=== PATIENT | male | born 1990 | race Caucasian/White ===

== ENCOUNTER 2017-01-23 11:18 | Emergency (ER) | payer SELFPAY ==
[~2017-01-23] VITALS: Ht 195.6 cm; Wt 163.7 kg
[2017-01-23 11:22] VITALS: BP 153/87; PULSE 92; RESP 16; TEMP 98.5; O2SAT 98
--- NOTE | 2017-01-23 12:10 | PD ---
HPI Chief Complaint: GI Complaint Time Seen by Provider: 11:36 Travel History International Travel<30 days: No Contact w/Intl Traveler<30days: [place] Traveled to: [place] Traveled to known affect area: No History of Present Illness HPI 26yo M with no significant PMH presents to the ED with c/o rectal bleeding for 2 days. Said that when he wiped, he saw bright red blood intermittently for 2 days. States he has been having intermittent mild abdominal pain for months. Said it is usually periumbilical and goes away by itself. Denies any fever, chest pain, sob, n/v, diarrhea, testicular pain, penile discharge, diarrhea, focal weakness or numbness. PFSH Past Medical History Hx Anticoagulant Therapy: No Diabetes: No Tetanus Vaccination: < 5 Years Influenza Vaccination: No Social History Alcohol Use: Yes (occ) Tobacco Use: No Substance Use: No Allergies-Medications (Allergen,Severity, Reaction): Uncoded Allergies: PCN (Allergy, Severe, 01/23/17) Reported Meds & Prescriptions Reported Meds & Active Scripts Active No Active Prescriptions or Reported Medications Review of Systems Except as stated in HPI: all other systems reviewed are Neg Physical Exam Narrative GENERAL: 26yo M not in distress. SKIN: Focused skin assessment warm/dry. HEAD: Atraumatic. Normocephalic. EYES: Pupils equal and round. No scleral icterus. No injection or drainage. ENT: No nasal bleeding or discharge. Mucous membranes pink and moist. NECK: Trachea midline. No JVD. CARDIOVASCULAR: Regular rate and rhythm. No murmur appreciated. RESPIRATORY: No accessory muscle use. Clear to auscultation. Breath sounds equal bilaterally. GASTROINTESTINAL: Abdomen soft, non-tender, nondistended. No rebound tenderness or guarding. RECTAL: no external hemorrhoids seen, no internal hemorrhoids palpated. Hemaprompt negative. MUSCULOSKELETAL: No obvious deformities. No clubbing. No cyanosis. No edema. NEUROLOGICAL: Awake and alert. No obvious cranial nerve deficits. Motor grossly within normal limits. Normal speech. PSYCHIATRIC: Appropriate mood and affect; insight and judgment normal. Data Data Last Documented VS Vital Signs Date Time Temp Pulse Resp B/P (MAP) Pulse Ox O2 Delivery O2 Flow Rate FiO2 01/23/17 11:22 98.5 92 16 153/87 (109) 98 Orders Orders Complete Blood Count With Diff (01/23/17 11:49) Basic Metabolic Panel (Bmp) (01/23/17 11:49) Labs Laboratory Tests Test 01/23/17 12:00 White Blood Count 7.3 TH/MM3 Red Blood Count 5.32 MIL/MM3 Hemoglobin 15.2 GM/DL Hematocrit 44.9 % Mean Corpuscular Volume 84.5 FL Mean Corpuscular Hemoglobin 28.5 PG Mean Corpuscular Hemoglobin Concent 33.7 % Red Cell Distribution Width 12.4 % Platelet Count 231 TH/MM3 Mean Platelet Volume 9.4 FL Neutrophils (%) (Auto) 63.4 % Lymphocytes (%) (Auto) 28.7 % Monocytes (%) (Auto) 6.5 % Eosinophils (%) (Auto) 1.0 % Basophils (%) (Auto) 0.4 % Neutrophils # (Auto) 4.6 TH/MM3 Lymphocytes # (Auto) 2.1 TH/MM3 Monocytes # (Auto) 0.5 TH/MM3 Eosinophils # (Auto) 0.1 TH/MM3 Basophils # (Auto) 0.0 TH/MM3 CBC Comment DIFF FINAL Differential Comment Blood Urea Nitrogen 13 MG/DL Creatinine 0.82 MG/DL Random Glucose 134 MG/DL Calcium Level 8.9 MG/DL Sodium Level 139 MEQ/L Potassium Level 4.0 MEQ/L Chloride Level 104 MEQ/L Carbon Dioxide Level 25.4 MEQ/L Anion Gap 10 MEQ/L Estimat Glomerular Filtration Rate 113 ML/MIN [facility] Medical Decision Making Medical Screen Exam Complete: Yes Emergency Medical Condition: Yes Differential Diagnosis Inflammatory bowel syndrome vs. irritable bowel syndrome vs. hemorrhoids vs. rectal fissure Narrative Course 26yo well appearing male with complaints of bright red blood per rectum as well as chronic mild abdominal pain. Pt has no abdominal pain on exam and hemaprompt negative. Labs reviewed, no leukocytosis. H/H normal at 15.2/44.9. BMP unremarkable. Vital signs stable. Return precautions given. HemaPrompt Point of Care Internal Pos. & Neg. Controls: Passed Fecal Specimen Occult Blood: Negative Diagnosis Primary Impression: Rectal bleeding Patient Instructions: General Instructions Departure Forms: Tests/Procedures Additional Instructions: Please follow up with your primary care physician in 3-7 days. Return to the ED if symptoms worsen. Med/Other Pt SpecificInfo: No Change to Meds Scripts No Active Prescriptions or Reported Meds Disposition: DISCHARGE HOME Condition: Stable YessyRamyaRadha DO Jan 23, 2017 12:10
[2017-01-23 12:12] LABS: AUTOMATED NEUTROPHIL # 4.6 TH/MM3 (1.8-7.7); BASOPHIL % 0.4 % (0.0-2.0); EOSINOPHIL # 0.1 TH/MM3 (0-0.4); HEMATOCRIT 44.9 % (39.0-51.0); HEMO FLAGS DIFF FINAL; LYMPH % 28.7 % (9.0-44.0); LYMPHOCYTE # 2.1 TH/MM3 (1.0-4.8); MEAN CELL VOLUME 84.5 FL (80.0-100.0); MEAN CORPUSCULAR HEMOGLOBIN 28.5 PG (27.0-34.0); MEAN CORPUSCULAR HGB CONC 33.7 % (32.0-36.0); MONO % 6.5 % (0.0-8.0); NEUT % 63.4 % (16.0-70.0); PLATELET COUNT 231 TH/MM3 (150-450); RED BLOOD COUNT 5.32 MIL/MM3 (4.50-5.90); RED CELL DISTRIBUTION WIDTH 12.4 % (11.6-17.2); WHITE BLOOD COUNT 7.3 TH/MM3 (4.0-11.0)
[2017-01-23 12:54] LABS: BICARBONATE 25.4 MEQ/L (21.0-32.0)
[2017-01-23 13:41] VITALS: BP 169/83
== END 2017-01-23 13:43 | disposition home or self-care (01) ==
LOC: PHED 11:18
DX: K62.5 Hemorrhage of anus and rectum (principal)
CPT/HCPCS: 80048; 85025; 99283

== ENCOUNTER 2017-04-18 20:43 | Emergency (ER) | payer SELFPAY ==
[~2017-04-18] VITALS: Ht 195.6 cm; Wt 164.0 kg
[2017-04-18 21:04] VITALS: BP 169/94; PULSE 81; RESP 20; TEMP 98.2; O2SAT 100
[2017-04-18] MEDS ORDERED: metroNIDAZOLE 500 MG TAB PO ONE (23:00)
[2017-04-18] MEDS ORDERED: IBUPROFEN 800 MG TAB PO ONE (23:00)
[2017-04-18] MEDS ORDERED: CIPROFLOXACIN 500 MG TAB PO ONE (23:00)
[2017-04-18] MEDS ORDERED: TETANUS/DIPHTHERIA TOXOID ADULT 0.5 ML VIAL IM ONE (23:15)
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
[2017-04-18] MEDS ORDERED: CIPR-9 PO (23:22)
[2017-04-18] MEDS ORDERED: METR-1 PO (23:22)
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
[2017-04-19 00:03] VITALS: BP 156/88
== END 2017-04-19 00:05 | disposition home or self-care (01) ==
LOC: PHED 20:43 → PHEFT 04-19 00:05
DX: S20.372A Other superficial bite of left front wall of thorax, initial encounter (principal); S89.92XA Unspecified injury of left lower leg, initial encounter; Z23 Encounter for immunization; Y04.1XXA Assault by human bite, initial encounter; X58.XXXA Exposure to other specified factors, initial encounter; Y93.9 Activity, unspecified; Y92.9 Unspecified place or not applicable; Y99.9 Unspecified external cause status; Z88.0 Allergy status to penicillin
CPT/HCPCS: 73564; 73590; 90471; 90714